=== PATIENT | male | born 1990 | race Hispanic/Latino ===

== ENCOUNTER 2019-11-20 16:59 | Inpatient (IN) ==
[2019-11-20 19:12] LABS: BASO# 0.03 X1000 (0.0-0.2); BASO% 0.3 % (0.0-0.8); EOS# 0.42 X1000 (0.0-0.7); EOS% 4.8 % (0.0-10.0); HEMATOCRIT 34.1 % (42.0-52.0); HEMOGLOBIN 11.5 g/dL (14.0-18.0); IMM GRAN# 0.02 X1000 (0.0-0.04); IMM GRAN% 0.2 % (0.0-0.5); LYMPH# 2.51 X1000 (1.2-3.4); LYMPH% 28.9 % (20.5-51.1); MCH 29.3 PG (27-31); MCHC 33.7 g/dL (33-37); MONO# 0.46 X1000 (0.11-0.59); MONO% 5.3 % (1.7-9.3); MPV 10.9 FL (7.4-10.4); NEUT# 5.26 X1000 (1.4-6.5); NEUT% 60.5 % (42.2-75.2); PLT 277 X1000 (130-400); RBC 3.92 XMIL (4.7-6.1); RDW 12.5 % (11.5-14.5)
[2019-11-20 19:22] LABS: URINE SOURCE CLEAN CATCH
[2019-11-20 19:27] LABS: BILIRUBIN URINE NEGATIVE (NEGATIVE); BLOOD URINE SMALL (NEGATIVE); COLOR STRAW; GLUCOSE URINE NEGATIVE (NEGATIVE); KETONE URINE NEGATIVE (NEGATIVE); LEUKOCYTES URINE NEGATIVE (NEGATIVE); NITRITE URINE NEGATIVE (NEGATIVE); PH URINE 6.5; PROTEIN URINE 300 mg/dL (NEGATIVE); SP GRAVITY URINE 1.013; TURBIDITY URINE CLEAR (CLEAR); UR EPITHELIAL CELLS <10 /HPF (<10); URINE BACTERIA NEGATIVE /HPF; URINE RBC <10 /HPF (<10); URINE WBC <10 /HPF (<10); UROBILINOGEN URINE NORMAL (NORMAL)
[2019-11-20 19:44] LABS: ESTIMATED GFR 11
[2019-11-20 20:08] LABS: AGAP 17; ALBUMIN 3.9 g/dL (3.5-5.0); ALKALINE PHOSPHATASE 190 U/L (32-122); BUN 59 mg/dL (8-22); CHLORIDE 105 mmol/L (98-107); CK PROFILE 275 U/L (24-204); COSMO 301; CREATININE 6.2 mg/dL (0.7-1.2); GLUCOSE 118 mg/dL (70-104); GOT 16 U/L (10-34); GPT 19 U/L (10-44); POTASSIUM 4.4 mmol/L (3.5-5.1); SODIUM 142 mmol/L (136-145); TCO2 21 mmol/L (25-35); TOTAL BILIRUBIN < 0.15 mg/dL (0.20-1.00); TOTAL PROTEIN 6.7 g/dL (6.3-8.3)
[2019-11-20 20:10] LABS: CALCIUM 6.6 mg/dL (8.8-10.2)
[2019-11-20 20:24] LABS: CK INDEX 0.7 (0.0-2.5)
[2019-11-20] MEDS ORDERED: NS 1,000 ML IV ONE (21:11)
[2019-11-20] MEDS ORDERED: CALCIUM GLUCONATE 1 GM in NS 50 ML IV ONE (21:11)
--- NOTE | 2019-11-20 22:10 | EKG Report ---
Test Performed on : 11/20/2019 8:28:39 PM Test Reason : acute renal failure Blood Pressure : / mmHG Vent. Rate : 076 BPM Atrial Rate : 076 BPM P-R Int : 166 ms QRS Dur : 096 ms QT Int : 386 ms P-R-T Axes : 033 020 019 degrees QTc Int : 434 ms Normal sinus rhythm. Normal ECG No previous ECGs available Unconfirmed Result
[2019-11-20] MEDS ORDERED: NS 1,000 ML IV SCH (23:45)
[2019-11-21] MEDS ORDERED: NS 1,000 ML IV SCH (01:45)
[2019-11-21] MEDS: NS 1,000 ML IV SCH ×4 (02:37→22:27)
--- NOTE | 2019-11-21 02:47 | HISTORY AND PHYSICAL ---
PRIMARY CARE PHYSICIAN: None. CHIEF COMPLAINT: Abnormal labs. HISTORY OF PRESENTING ILLNESS: A 29-year-old male with a history of hypertension who apparently had seen a physician in [place] or so for elevated blood pressure and asthma. He had labs drawn there and he returned. However, he did not know the results until today. He was called by that physician's office and told to go to the emergency department due to elevated creatinine. He was initially seen at [facility] and repeat labs were drawn there which did show he had a creatinine of 6.2 and a calcium of 6.6. Subsequently, due to lack of subspecialist care there he was transferred to [facility] for further management. At the time of my examination, patient denied any headache, fever, chills, chest pain, shortness of breath, hemoptysis, or weight changes. He states that he feels okay. PAST MEDICAL HISTORY: Includes hypertension and asthma. PAST SURGICAL HISTORY: None. ALLERGIES: No known drug allergies. CURRENT MEDICATIONS: Include Norvasc 5 mg p.o. daily. SOCIAL HISTORY: No history of smoking. Admits to social alcohol use. Denies any illicit drug use. FAMILY HISTORY: No history of coronary artery disease. REVIEW OF SYSTEMS: Fourteen point review of systems is as listed in HPI. Other systems negative. PHYSICAL EXAMINATION: GENERAL: Cooperative, friendly male. He is resting comfortably now. VITAL SIGNS: Temperature 98.0 degrees, pulse 71, respiration 18, blood pressure 152/93. HEENT: Atraumatic, normocephalic. Extraocular movements intact. PERRLA. NECK: Supple. CHEST: Clear to auscultation. CARDIOVASCULAR: Regular rate and rhythm. S1, S2. ABDOMEN: Soft, obese. Positive bowel sounds. EXTREMITIES: No edema. NEUROLOGIC: He is awake, alert, oriented x3. GENITOURINARY: No bladder distention. SKIN: Warm. LABORATORIES AND STUDIES: Sodium 142, potassium 4.4, chloride 105, CO2 is 21, BUN is 59, creatinine 6.2, glucose is 118, calcium is 6.6. WBCs 8.70, hemoglobin 11.5, hematocrit 34.1, platelets 277,000. ASSESSMENT: This is a 29-year-old male with a history of hypertension and asthma who had initially presented to a physician in [place] and had laboratories drawn for elevated blood pressure. He had a return call earlier today while he was back at his home in [place] that his labs were abnormal and was told to come to the emergency department. In the ED,he was evaluated. He had repeat laboratories drawn which did show a markedly elevated creatinine and subsequently he was transferred to [facility] for further evaluation and management. 1. Acute kidney injury. 2. Hypocalcemia. 3. Hypertension. 4. Asthma. PLAN: 1. We will admit patient to medical floor with telemetry. 2. Continue with IV fluid hydration. 3. Monitor his creatinine and calcium 4. Consult Nephrology. 5. Get a renal ultrasound. 6. Monitor blood pressure, resume antihypertensive agents. 7. Continue with DuoNebs p.r.n. 8. Put patient on DVT prophylaxis with SCDs. 9. We will continue to follow, reassess, and make further recommendation based on patient's clinical course. cc: Benny Dupont MD MTDD
[2019-11-21 03:16] LABS: ALB/GLOB RATIO 1.1; ALBUMIN 3.5 g/dL (3.5-5.0); PHOSPHORUS 5.1 mg/dL (2.7-4.5); POTASSIUM 4.4 mmol/L (3.5-5.1); TOTAL BILIRUBIN 0.19 mg/dL (0.20-1.00); TOTAL PROTEIN 6.6 g/dL (6.3-8.3)
[2019-11-21 03:21] LABS: CALCIUM 6.9 mg/dL (8.8-10.2)
[2019-11-21] MEDS ORDERED: CALCIUM GLUCONATE 1 GM in NS 50 ML IV ONE (04:20)
[2019-11-21] MEDS ORDERED: CALCIUM GLUCONATE 1 GM in NS 100 ML IV ONE (08:09)
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
[2019-11-21] MEDS: NORVASC PO SCH (09:32)
--- NOTE | 2019-11-21 12:09 | Diag Imaging Result Doc PS360 ---
EXAM: US RENAL 2 (RETROPER) COMPLETE INDICATION: DONNA TECHNIQUE: COMPARISON: None. FINDINGS: There is bilateral increased renal cortical echotexture, which is a nonspecific indicator of medical renal disease. No discrete renal mass or hydronephrosis is appreciated. The right kidney measures 8.3 cm in the left kidney measures 8.4 cm in the greatest longitudinal axes. Right renal cortex measures 1 cm in the left renal cortex measures 0.8 cm in thickness. The urinary bladder is partially distended and is grossly unremarkable. IMPRESSION: Increased renal cortical echotexture, which is a nonspecific indicator of medical renal disease. Electronically signed by Zay Lobo 11/21/2019 12:06 PM
[2019-11-21 13:29] LABS: UR CREAT RANDOM 45.9 mg/dL (14-26)
[2019-11-21 13:39] LABS: UR PROT RANDOM 236.2 mg/dL
[2019-11-22] MEDS: NS 1,000 ML IV SCH ×3 (01:55→08:22)
--- NOTE | 2019-11-22 07:36 | PROGRESS NOTE ---
DATE: 11/22/2019 SUBJECTIVE: The patient reports feeling fine. No acute issues noted as per nursing staff overnight. OBJECTIVE: Vital Signs: Temperature 98 degrees, heart rate 69, respiratory rate 18, blood pressure 126/71. O2 saturation 99% on room air. General: This is a 29-year-old, male, lying in bed in no acute distress. Cardiovascular: S1, S2 heard. No murmurs, gallops, or rubs. Regular rate and rhythm. Respiratory: Clear bilaterally to auscultation. No work of breathing or using accessory muscles. Abdomen: Soft, nontender to palpation. Bowel sounds present. No organomegaly. Extremities: No clubbing, cyanosis, or edema. Peripheral pulses present in both legs. Neurological: The patient is alert and oriented x3. Moves 4 extremities. LABORATORY DATA: Pending at the time of dictation. IMAGING: A renal ultrasound showed increased renal cortical echotexture, which is a nonspecific indicator of medical renal disease. ASSESSMENT AND PLAN: 1. Acute kidney injury. We do not have any labs from today, but from yesterday, there have not been any major changes in the creatinine. 2. Hypocalcemia. It is being replenished at the time of my dictation. 3. Hypertension. Blood pressure is under control. Will continue monitoring this patient closely. Nephrology is following this patient. Will follow recommendations. 4. Hypertension. Blood pressure is under control. Will continue with the same medication. 5. Asthma. The patient is not having any acute asthma attack. Will continue to monitor. cc: Clovis James MD
[2019-11-22] MEDS: NORVASC PO SCH (08:20)
[2019-11-22 08:39] LABS: BASO# 0.03 X1000 (0.0-0.2); BASO% 0.5 % (0.0-0.8); EOS# 0.31 X1000 (0.0-0.7); HEMOGLOBIN 10.7 g/dL (14.0-18.0); IMM GRAN# 0.02 X1000 (0.0-0.04); IMM GRAN% 0.3 % (0.0-0.5); LYMPH# 1.67 X1000 (1.2-3.4); LYMPH% 27.1 % (20.5-51.1); MCH 29.6 PG (27-31); MCHC 33.4 g/dL (33-37); MCV 88.6 FL (81-99); MONO# 0.42 X1000 (0.11-0.59); MONO% 6.8 % (1.7-9.3); MPV 10.8 FL (7.4-10.4); NEUT# 3.71 X1000 (1.4-6.5); NEUT% 60.3 % (42.2-75.2); PLT 205 X1000 (130-400); RBC 3.61 XMIL (4.7-6.1); RDW 12.5 % (11.5-14.5); WBC 6.16 X1000 (4.8-10.8)
[2019-11-22 08:55] LABS: HEMOGLOBIN A1C 5.1 % (4.8-6.0)
[2019-11-22 09:07] LABS: CALCIUM 7.1 mg/dL (8.8-10.2); CREATININE 5.9 mg/dL (0.7-1.2); POTASSIUM 4.7 mmol/L (3.5-5.1)
[2019-11-22 09:08] LABS: ALBUMIN 3.3 g/dL (3.5-5.0); CREATININE 5.9 mg/dL (0.7-1.2); PHOSPHORUS 4.1 mg/dL (2.7-4.5); POTASSIUM 4.6 mmol/L (3.5-5.1)
[2019-11-22] MEDS ORDERED: CALCIUM GLUCONATE 2 GM in NS 100 ML IV ONE (09:26)
[2019-11-22 09:38] LABS: FERRITIN 360 ng/mL (30-400)
--- NOTE | 2019-11-22 10:02 | NEPHROLOGY PROGRESS NOTE ---
DATE: 11/22/2019 SUBJECTIVE: The patient is sitting up on the side of the bed. He is ambulatory without difficulty. He has just come from the restroom. He reports that his urine was very foamy today. OBJECTIVE: Vital Signs: Temperature 97.7 degrees, pulse 67, respiratory rate 22, blood pressure 132/80. Intake 1.9 L. Output multiple voids, not measured. General: Middle- aged gentleman, young adult male, sitting up on the side of the bed. He is awake and alert. He is in no acute distress. HEENT: Normocephalic, atraumatic. WILLIAM. Neck: Supple. Thick. Cardiovascular: Regular rate and rhythm. No murmur. No gallop. Pulmonary: Equal excursion. Clear bilaterally on room air. Abdomen: Obese, round. Positive bowel sounds. : Voiding. Extremities: No clubbing, cyanosis. He has no edema today. Integumentary: Skin is warm and dry. LABORATORY DATA: Pending. He had an ESR of 67 yesterday. His urine random sodium was 78, not indicative of prerenal. He had no eosinophils. Other labs are outstanding. IMAGING: Renal ultrasound indicated renal size as 8.3 and 8.4, left and right. No hydronephrosis or mass. He had increased renal cortical echotexture noted. ASSESSMENT AND PLAN: Abnormal renal function. Again, suspicious for chronic disease. The question remains if this is IgA nephropathy that has been undiagnosed, and now is presenting with severe renal dysfunction. Again, the patient has no symptoms of uremia. His blood pressure is well controlled today, and aside from his report of foamy urine and noted urine protein of 236 mg/dL yesterday, we still do not have a clear causation. The patient will likely need a renal biopsy for definitive diagnosis. Once we have some of his other labs back that we ordered on his protein workup, will be able to make a decision regarding that. His renal function has been fairly stable, and it appears that he will be in the hospital at least overnight. I will go ahead and order a 24-hour urine collection to start this morning so we can have that information tomorrow to help us with decisions. Dictated by BETO Reed for Carson Gerber MD cc: MD HEIDI Hernandez
[2019-11-23 07:58] VITALS: BP 167/116
[2019-11-23 09:20] LABS: BASO# 0.03 X1000 (0.0-0.2); BASO% 0.4 % (0.0-0.8); EOS# 0.37 X1000 (0.0-0.7); HEMATOCRIT 33.9 % (42.0-52.0); HEMOGLOBIN 11.2 g/dL (14.0-18.0); LYMPH# 1.86 X1000 (1.2-3.4); MCH 29.1 PG (27-31); MCV 88.1 FL (81-99); MONO# 0.43 X1000 (0.11-0.59); MONO% 5.8 % (1.7-9.3); MPV 11.1 FL (7.4-10.4); NEUT# 4.75 X1000 (1.4-6.5); NEUT% 63.8 % (42.2-75.2); PLT 237 X1000 (130-400); RBC 3.85 XMIL (4.7-6.1); RDW 12.5 % (11.5-14.5); WBC 7.44 X1000 (4.8-10.8)
[2019-11-23] MEDS: NORVASC PO SCH (09:29)
[2019-11-23 09:53] LABS: ALBUMIN 3.5 g/dL (3.5-5.0); CALCIUM 7.6 mg/dL (8.8-10.2); CREATININE 6.2 mg/dL (0.7-1.2); PHOSPHORUS 4.7 mg/dL (2.7-4.5); POTASSIUM 4.6 mmol/L (3.5-5.1)
--- NOTE | 2019-11-23 09:55 | NEPHROLOGY PROGRESS NOTE ---
DATE: 11/23/2019 TIME SEEN: 0655. SUBJECTIVE: Mr. Hyman is resting quietly in bed. His girlfriend is there also. He denies chest pain or increased work of breathing. States that he has not felt bad. The reason he was hospitalized was secondary to having abnormal labs. IMAGING AND LABORATORY DATA: Labs are pending this a.m. Labs yesterday showed a potassium of 4.6, BUN of 52, with a creatinine of 5.9, down from 6.2, with a hemoglobin of 10.7. The patient has normal complements. ESR is elevated. He has further labs pending. Renal ultrasound indicates small bilateral kidneys. OBJECTIVE: Vital Signs: Temperature 97.6 degrees, blood pressure 141/89, heart rate 70, respirations 18. He is on room air. Last recorded saturation 98%. He has had 3386 in, 3550 out to void. General: This is a 29-year-old, male, who is sitting on the side of the bed. He appears in no acute distress. Skin: Warm and dry. HEENT: Normocephalic, atraumatic. Conjunctiva is pale. He has WILLIAM. Mucous membranes are dry. Neck: Supple. Trachea midline. No evidence of JVD in the upright position. Cardiovascular: Regular rate and rhythm. He has an S4 that is present. Lungs: Clear to auscultation bilaterally. Equal excursion on room air. Abdomen: Large, obese, soft, nontender. Positive bowel sounds. Genitourinary: Not inspected. Voiding adequate amount. Extremities: No edema. No clubbing or cyanosis. Integumentary: No rashes or lesions evident. ASSESSMENT AND PLAN: 1. Abnormal renal function. The patient's BUN and creatinine remain elevated for the last 24 to 48 hours. He has bilateral small kidneys. We will presume that this is chronic kidney disease stage 5, possibly secondary to focal glomerulosclerosis related to his hypertension. We will await his labs today. If these remain stable and he remains asymptomatic with adequate urine output, we have discussed for the patient to be discharged so he can get back to work, and to follow up in our office on a monthly basis. We have also discussed possible renal biopsy, but secondary to the patient's small bilateral kidneys, we have told him that this is not an optimal option. 2. Electrolytes and acid-base balance. These has been acceptable. 3. Anemia. This remains low, but stable. I would like to thank you for allowing us to follow with this patient. Dictated by BETO Bearden for Carson Gerber MD Face to face encounter, data reviewed, discussed with Meghna Jules on 11/23/19. I agree with the above assessment and plan of care. cc: BETO Bearden MD [facility]
[2019-11-23 12:33] LABS: UR CREATININE 39.5 mg/dL (14-26)
[2019-11-23 13:35] LABS: CREATININE 6.2 mg/dL (0.7-1.2)
[2019-11-25 11:56] LABS: ANTINEUTROPHIL CYTOPLASMIC AB SEE COMMENTS; CYTOPLASMIC NEUTROPHILIC AB SEE COMMENTS
--- NOTE | 2019-11-25 13:57 | DISCHARGE SUMMARY ---
ADMISSION DATE: 11/21/2019 DISCHARGE DATE: 11/23/2019 DISCHARGE DIAGNOSES: 1. Chronic kidney disease stage 5. 2. Hypertension. 3. History of asthma. CONSULTATIONS: Dr. Carson Gerber from Nephrology. PROCEDURES: Renal ultrasound showed increased renal cortical echotexture which is a nonspecific indicator of medical renal disease. HOSPITAL COURSE: This is a 29-year-old, male, who has history of hypertension who has been seen by a doctor in [place] for elevated blood pressure. He had some labs because they were elevated. He was told to come to the emergency department. He was admitted for chronic kidney disease. He has been monitored and his creatinine has been elevated in the range of 6 to 6.2 with GFR of 11. He was not acidotic. He was not uremic. Blood pressure was under control with amlodipine 5 mg p.o. daily. So at this point, what we have coordinated with nephrology is that he is going to be seen in the office as a followup with new labs in a couple weeks. He will not need any renal biopsy at this time. He is going to be discharged in stable condition. DISCHARGE PHYSICAL EXAMINATION: Vital Signs: Temperature 97.9 degrees, heart rate 73, respiratory rate 16, blood pressure 167/89. O2 saturation 100% on room air. General: This is a morbidly obese 29-year-old male, lying in bed, in no acute distress. Cardiovascular: S1, S2 heard. No murmurs, gallops, or rubs. Regular rate and rhythm. Respiratory: Clear bilaterally to auscultation. No work of breathing or using accessory muscles. Abdomen: Soft, nontender to palpation. Bowel sounds present. No organomegaly. Extremities: No clubbing, cyanosis, or edema. Peripheral pulses present in both legs. Neurological: The patient is alert and oriented x3. Moves 4 extremities. DISCHARGE DISPOSITION: Home to self-care. FOLLOW-UP INSTRUCTIONS: Follow up with Dr. Gerber in 2 weeks. DISCHARGE MEDICATIONS: 1. Calcium carbonate, Vitamin D3 1 tablet p.o. daily. 2. Amlodipine 5 mg 1 tablet p.o. daily. 3. Sodium bicarbonate 1 tablet p.o. b.i.d. TIME DISCHARGING THIS PATIENT: 35 minutes. cc: Clovis James MD
== END 2019-11-23 12:17 | disposition home or self-care (01) | DRG 683 ==
LOC: P.ED 16:59 → 3N 11-21 00:24 → SUATTDRO 11-21 00:24
PROVIDERS: ATTEND Internal Medicine